=== PATIENT | female | born 1995 ===

== ENCOUNTER 2018-05-04 08:18 | Emergency (ER) | payer OTHER ==
[~2018-05-04] VITALS: Ht 172.7 cm; Wt 70.3 kg
== END 2018-05-04 10:20 | disposition home or self-care (01) ==
LOC: ER 08:18
DX: S91.201A Unspecified open wound of right great toe with damage to nail, initial encounter (principal); W18.09XA Striking against other object with subsequent fall, initial encounter; Y93.01 Activity, walking, marching and hiking; Y92.488 Other paved roadways as the place of occurrence of the external cause; Y99.8 Other external cause status